=== PATIENT | female | born 1950 | race Caucasian/White ===

== ENCOUNTER 2023-03-02 22:06 | Emergency (ER) | payer OTHER ==
--- NOTE | 2023-03-02 23:06 | EDPHYS ---
Physician Documentation [facility] Name: Elaine Copeland Age: 72 yrs Sex: Female : 1950 Arrival Date: 03/02/2023 Time: 22:06 Bed 12 Private MD: ED Physician Gee Sol HPI: 03/02 22:50 This 72 yrs old Female presents to ER via Ambulatory with complaints of Eye Problem. cp 22:50 The patient is experiencing redness, to the left eye, caused by an unknown mechanism. cp Onset: The symptoms/episode began/occurred today. Associated signs and symptoms: Pertinent negatives: pain, drainage, injury. Patient reports she was reading a book to her grandchild when the child pointed out that her left eye was red. Patient with PMHX significant for HTN. Reports she has not taken evening medication. Denies pain, no change in vision. Historical: - Allergies: 22:16 No Known Allergies; kl - PMHx: 22:16 Hypertensive disorder; Asthma; seasonal allergies; kl - PSHx: 22:16 foot; esophageal dilation; kl - Immunization history:: Adult Immunizations up to date. - Social history:: Smoking status: Patient denies any tobacco usage or history of. ROS: 22:53 Eyes: Positive for redness, of the inner aspect of conjunctiva of left eye, Negative cp for discharge, itching, pain, visual disturbance. 22:53 ENT: Negative for drainage from ear(s), ear pain, sore throat, difficulty swallowing, cp difficulty handling secretions. 22:53 Cardiovascular: Negative for chest pain. 22:53 Respiratory: Negative for cough, shortness of breath, wheezing. 22:53 Abdomen/GI: Negative for abdominal pain, nausea, vomiting, and diarrhea. 22:53 Neuro: Negative for altered mental status, dizziness, headache, weakness. 22:53 All other systems are negative. Exam: 22:56 Head/Face: Normocephalic, atraumatic. cp 22:56 Constitutional: The patient appears in no acute distress, alert, awake, comfortable, non-toxic, well developed, well nourished. 22:56 Eyes: Periorbital structures: appear normal, Pupils: equal, round, and reactive to light and accomodation, Extraocular movements: intact throughout, Conjunctiva: subconjunctival hemorrhage(s), seen in the left eye, medial aspect, Corneas: are normal, Anterior chamber: normal, Lids and lashes: appear normal, bilaterally, Examination of the other eye reveals no obvious gross abnormality. 22:56 ENT: External ear(s): are unremarkable, Nose: is normal, Mouth: Lips: moist, Oral mucosa: moist, Posterior pharynx: is normal, airway is patent, no erythema, no exudate. 22:56 Neck: ROM/movement: is normal, is supple, without pain, no range of motions limitations. 22:56 Chest/axilla: Inspection: normal. 22:56 Cardiovascular: Rate: normal, Rhythm: regular. 22:56 Respiratory: the patient does not display signs of respiratory distress, Respirations: normal, no use of accessory muscles, labored breathing, is not present, Breath sounds: are clear throughout, no decreased breath sounds, no stridor, no wheezing. 22:56 Abdomen/GI: Inspection: abdomen appears normal. 22:56 Skin: no rash present. Vital Signs: 22:14 BP 183 / 93; Pulse 91; Resp 18; Temp 98.9; Pulse Ox 96% ; Weight 65.77 kg (R); Height 5 kl ft. 4 in. ; Pain 0/10; 22:14 Body Mass Index 24.89 (65.77 kg, 162.56 cm) kl 22:14 Pain Scale: Adult kl Visual Acuity: 22:48 Left Eye Visual acuity 20/20, ; Right Eye Visual acuity 20/20, ; Both Eyes Visual kd3 acuity 20/20; With Lenses; MDM: 22:28 Patient medically screened. cp 23:05 Data reviewed: vital signs, nurses notes. cp 23:05 Differential diagnosis: Foreign body in Acute iritis of subconjunctival hemorrhage. cp Care significantly affected by the following chronic conditions: Hypertension. Counseling: I had a detailed discussion with the patient and/or guardian regarding: the presence of at least one elevated blood pressure reading (>120/80) during this emergency department visit, the need for outpatient follow up, an opthalmologist, to return to the emergency department if symptoms worsen or persist or if there are any questions or concerns that arise at home. ED course: VS noted. Patient reports she will take prescribed blood pressure at home. Reassurance. Will discharge to home for continued monitoring. 03/02 22:43 Order name: Visual Acuity; Complete Time: 22:49 cp Administered Medications: No medications were administered Disposition Summary: 03/02/23 23:06 Discharge Ordered Location: Home cp Problem: new cp Symptoms: are unchanged cp Condition: Stable cp Diagnosis - Conjunctival hemorrhage, left eye cp - Hypertensive heart disease without heart failure cp Followup: cp - With: Private Physician - When: 2 - 3 days - Reason: Recheck today's complaints Discharge Instructions: - Discharge Summary Sheet cp - Hypertension, Adult cp - Subconjunctival Hemorrhage cp - Form - Blood Pressure Record Sheet cp - How to Take Your Blood Pressure cp Forms: - Medication Reconciliation Form cp - Thank You Letter cp - Antibiotic Education cp - Prescription Opioid Use cp - Patient Portal Instructions cp - Leadership Thank You Letter cp Signatures: Radha Poole RN RN kl Page, Corey, PA PA cp Corrections: (The following items were deleted from the chart) 03/03 15:23 15:20 Constitutional: The patient appears in no acute distress, alert, awake, cp comfortable, non-toxic, well developed, well nourished, cp 15:23 15:20 Head/Face: Normocephalic, atraumatic. cp cp 15:23 15:20 Eyes: Periorbital structures: appear normal, Pupils: equal, round, and reactive cp to light and accomodation, Extraocular movements: intact throughout, Conjunctiva: subconjunctival hemorrhage(s), seen in the left eye, medial aspect, Corneas: are normal, Anterior chamber: normal, Lids and lashes: appear normal, bilaterally, Examination of the other eye reveals no obvious gross abnormality, cp 15:23 15:20 ENT: External ear(s): are unremarkable, Nose: is normal, Mouth: Lips: moist, Oral cp mucosa: moist, Posterior pharynx: is normal, airway is patent, no erythema, no exudate, cp 15:23 15:20 Neck: ROM/movement: is normal, is supple, without pain, no range of motions cp limitations, cp 15:23 15:20 Chest/axilla: Inspection: normal, cp cp 15:23 15:20 Cardiovascular: Rate: normal, Rhythm: regular, cp cp 15:23 15:20 Respiratory: the patient does not display signs of respiratory distress, cp Respirations: normal, no use of accessory muscles, labored breathing, is not present, Breath sounds: are clear throughout, no decreased breath sounds, no stridor, no wheezing, cp 15:23 15:20 Abdomen/GI: Inspection: abdomen appears normal, cp cp 15:23 15:20 Skin: no rash present. cp cp
--- NOTE | 2023-03-02 23:06 | ER ---
Nurse's Notes [facility] Name: Elaine Copeland Age: 72 yrs Sex: Female : 1950 Arrival Date: 03/02/2023 Time: 22:06 Bed 12 Private MD: Diagnosis: Conjunctival hemorrhage, left eye;Hypertensive heart disease without heart failure Presentation: 03/02 22:14 Chief complaint: Patient states: left eye redness noticed 20 minutes INTERVENTIONIST denies change kl in vision or pain slight swelling noted to bottom lid no drainage. Coronavirus screen: Vaccine status: Patient reports receiving the 2nd dose of the covid vaccine. Ebola Screen: Patient negative for fever greater than or equal to 101.5 degrees Fahrenheit, and additional compatible Ebola Virus Disease symptoms. Initial Sepsis Screen: Does the patient meet any 2 criteria? No. Patient's initial sepsis screen is negative. Does the patient have a suspected source of infection? No. Patient's initial sepsis screen is negative. Risk Assessment: Do you want to hurt yourself or someone else? Patient reports no desire to harm self or others. 22:14 Method Of Arrival: Ambulatory kl 22:14 Acuity: ISELA 5 kl 22:45 Onset of symptoms was March 02, 2023. kd3 Triage Assessment: 22:17 General: Appears in no apparent distress. comfortable, Behavior is calm, cooperative. kl Pain: Denies pain. EENT: Eyes Sclera/Cornea are reddened in inner aspect of conjunctiva of left eye. Historical: - Allergies: 22:16 No Known Allergies; kl - PMHx: 22:16 Hypertensive disorder; Asthma; seasonal allergies; kl - PSHx: 22:16 foot; esophageal dilation; kl - Immunization history:: Adult Immunizations up to date. - Social history:: Smoking status: Patient denies any tobacco usage or history of. Screenin:44 [facility] ED Fall Risk Assessment (Adult) History of falling in the last 3 months, kd3 including since admission No falls in past 3 months (0 pts) Confusion or Disorientation No (0 pts) Intoxicated or Sedated No (0 pts) Impaired Gait No (0 pts) Mobility Assist Device Used No (0 pt) Altered Elimination No (0 pt) Score/Fall Risk Level 0 - 2 = Low Risk Maintained a safe environment. Abuse screen: Denies threats or abuse. Denies injuries from another. Nutritional screening: No deficits noted. Tuberculosis screening: No symptoms or risk factors identified. Assessment: 22:42 General: Appears uncomfortable, Behavior is calm, cooperative. Pain: Denies pain. EENT: kd3 Eyes hemorrhage noted to right eye . Vital Signs: 22:14 BP 183 / 93; Pulse 91; Resp 18; Temp 98.9; Pulse Ox 96% ; Weight 65.77 kg (R); Height 5 kl ft. 4 in. ; Pain 0/10; 22:14 Body Mass Index 24.89 (65.77 kg, 162.56 cm) kl 22:14 Pain Scale: Adult kl Visual Acuity: 22:48 Left Eye Visual acuity 20/20, ; Right Eye Visual acuity 20/20, ; Both Eyes Visual kd3 acuity 20/20; With Lenses; ED Course: 22:07 Patient arrived in ED. jj6 22:16 Triage completed. 22:23 Manuela Vila RN is Primary Nurse. kd3 22:28 Gee Rodriguez PA is PHCP. cp 22:28 Gee Sol MD is Attending Physician. cp 22:45 Arm band placed on right wrist. kd3 22:45 Patient has correct armband on for positive identification. Provided Education on: . kd3 23:15 No provider procedures requiring assistance completed. Patient did not have IV access kd3 during this emergency room visit. Administered Medications: No medications were administered Medication: 22:45 VIS not applicable for this client. kd3 Outcome: 23:06 Discharge ordered by . cp 23:15 Discharged to home ambulatory. kd3 23:15 Condition: stable 23:15 Discharge instructions given to patient, family, Instructed on discharge instructions, follow up and referral plans. Demonstrated understanding of instructions, follow-up care. 23:15 Patient left the ED. kd3 Signatures: Radha Poole RN RN kl Page, Corey, PA PA cp Jeffries, Jennifer 6 Manuela Vila RN RN kd3
[2023-03-02 23:39] VITALS: BP 183/93; TEMP 98.9; O2SAT 96
== END 2023-03-02 23:15 | disposition home or self-care (01) ==
LOC: ER 22:06
DX: H11.32 Conjunctival hemorrhage, left eye (principal); I11.9 Hypertensive heart disease without heart failure
CPT/HCPCS: 99283

== ENCOUNTER 2023-12-24 16:56 | Emergency (ER) | payer OTHER ==
--- OUTSIDE RECORDS SUMMARY | 2023-12-24 16:59 | XMS REPORT | Continuity of Care Document ---
Author Name Unknown Address [address] [place] [address] [facility] Address [address] [place] [address] Care Team Providers Care [place] Worker Name Role Phone Luis Gilmore Attending Clinician Unavailabl e [id number] Attending Clinician Unavaila ble FIDELINA TAY Admitting Clinician Unavailable [id number] Admitting Clinician Unavaila ble Payers Payer Name Policy Type Policy Number Effective Date Expirati on Date Source Encounters Start Date/Time End Date/Time Encounter Type Admission Type Attending Clinicians Care Facility Care Department Encounter ID Source 2023-06-08 11:00:00 Inpatient Luis Gamboa [facility] SUGL [id number] 18 [facility] 2023-05-23 00:00:00 2023-05-23 00:00:00 Outpatient [id number] [email or web address] PRIV PRIV [id number] [facility]
--- NOTE | 2023-12-24 19:24 | ER ---
Nurse's Notes [facility] Name: Elaine Copeland Age: 73 yrs Sex: Female : 1950 Arrival Date: 12/24/2023 Time: 16:56 Bed DX3 Private MD: Diagnosis: Unspecified superficial injury of other part of head, initial encounter Presentation: 12/23 17:50 Chief complaint: Patient states: FALL AT NOON WITH OCCIPITAL IMPACT, NO LOC. bp Coronavirus screen: At this time, the client does not indicate any symptoms associated with coronavirus-19. Ebola Screen: No symptoms or risks identified at this time. Initial Sepsis Screen: Does the patient meet any 2 criteria? No. Patient's initial sepsis screen is negative. Does the patient have a suspected source of infection? No. Patient's initial sepsis screen is negative. Risk Assessment: Do you want to hurt yourself or someone else? Patient reports no desire to harm self or others. Onset of symptoms was December 24, 2023 at 12:00. 17:50 Method Of Arrival: Ambulatory bp 17:50 Acuity: ISELA 4 bp Triage Assessment: 17:50 General: Appears in no apparent distress. comfortable, Behavior is cooperative, bp appropriate for age, anxious. Pain: Complains of pain in back of head. Neuro: Level of Consciousness is awake, alert, obeys commands, Oriented to Appropriate for age. Historical: - Allergies: 17:50 No Known Allergies; bp - PMHx: 17:50 Asthma; seasonal allergies; Hypertensive disorder; bp - PSHx: 17:50 Esophageal Dilation; foot; bp - Immunization history:: Adult Immunizations up to date. - Infectious Disease History:: Denies. - Social history:: Smoking status: Patient denies any tobacco usage or history of. Screenin:52 [facility] ED Fall Risk Assessment (Adult) History of falling in the last 3 months, bp including since admission No falls in past 3 months (0 pts). Abuse screen: Denies threats or abuse. Denies injuries from another. Nutritional screening: No deficits noted. Tuberculosis screening: No symptoms or risk factors identified. Assessment: 19:34 Reassessment: Patient appears in no apparent distress at this time. Patient and/or as6 family updated on plan of care and expected duration. Pain level reassessed. Patient is alert, oriented x 3, equal unlabored respirations, skin warm/dry/pink. Vital Signs: 17:50 BP 165 / 97; Pulse 89; Resp 16; Temp 98; Pulse Ox 97% ; bp 19:34 BP 155 / 74; Pulse 61; Resp 16; Pulse Ox 97% ; as6 ED Course: 17:00 Patient arrived in ED. im 17:01 Angelo Govea MD is Attending Physician. ec2 17:13 CT Head C Spine In Process Unspecified. EDMS 17:50 Arm band placed on. bp 17:51 Triage completed. bp 17:52 Patient has correct armband on for positive identification. bp 18:22 hSelby Grullon PA-C is PHCP. sb4 19:34 Provided Education on: follow up, fall precautions . as6 19:34 No provider procedures requiring assistance completed. Patient did not have IV access as6 during this emergency room visit. Administered Medications: No medications were administered Medication: 19:34 VIS not applicable for this client. as6 Outcome: 19:24 Discharge ordered by . sb4 19:34 Discharged to home ambulatory, with significant other, as6 19:34 Condition: stable 19:34 Discharge instructions given to patient, Instructed on discharge instructions, follow up and referral plans. Demonstrated understanding of instructions, follow-up care, 19:35 Patient left the ED. as6 Signatures: Dispatcher [employer] Troy Ga, RN RN Watson Payton RN RN as6 Shelby Grullon PA-C PA-C sb4 [place] Ron Angelo Govea MD MD ec2
--- NOTE | 2023-12-24 19:24 | EDPHYS ---
Physician Documentation [facility] Name: Elaine Copeland Age: 73 yrs Sex: Female : 1950 Arrival Date: 12/24/2023 Time: 16:56 Bed DX3 Private MD: ED Physician Angelo Govea HPI: 12/23 17:57 This 73 yrs old Female presents to ER via Ambulatory with complaints of Head ec2 Injury Without LOC-Adult. 17:57 Patient arrives today for evaluation after head injury. Patient reports that she ec2 tripped and fell and injured her head. Patient complaining of head pain and neck. Patient reports no LOC, no blood thinners.. Historical: - Allergies: 17:50 No Known Allergies; bp - PMHx: 17:50 Asthma; seasonal allergies; Hypertensive disorder; bp - PSHx: 17:50 Esophageal Dilation; foot; bp - Immunization history:: Adult Immunizations up to date. - Infectious Disease History:: Denies. - Social history:: Smoking status: Patient denies any tobacco usage or history of. ROS: 17:57 Constitutional: as per hpi ec2 Exam: 17:57 Constitutional: GEN: No acute distress HEENT: -Head: no deformities -Eyes: EOMI CV: ec2 regular rate LUNGS: no respiratory distress ABD: non-tender SKIN: no wounds appreciated MSK: No C/T/L spine deformities RUE w/o bony deformity LUE w/o bony deformity RLE w/o bony deformity LLE w/o bony deformity NEURO: moves all extremities equally, GCS 15 (E4, V5, M6), cranial nerves II through XII intact, strength intact all 4 extremities. Vital Signs: 17:50 BP 165 / 97; Pulse 89; Resp 16; Temp 98; Pulse Ox 97% ; bp 19:34 BP 155 / 74; Pulse 61; Resp 16; Pulse Ox 97% ; as6 MDM: 17:15 Patient medically screened. ec2 17:57 Data reviewed: vital signs. ED course: Patient arrives today for evaluation after head ec2 injury. Examination remarkable for well-appearing nontoxic dividual with reassuring vital signs and reassuring hemodynamics and neurologic examination. Will obtain CT scan of the head and C-spine to evaluate for traumatic pathology. Differential diagnosis includes processes such as intracranial brain bleed, C-spine fracture. Patient otherwise without any prodromal symptoms to indicate ACS or PE or dissection. Accordingly will also forego lab test such as CBC, BMP, EKG.. 18:22 Transition of care: After a detail discussion of the patient's case, care is ec2 transferred to Shelby Grullon PA-C. ED course: Patient signed out pending radiology read of CT scans.. 12/23 17:01 Order name: CT Head C Spine; Complete Time: 19:31 ec2 Administered Medications: No medications were administered Disposition: 12/24 10:00 I agree with the assessment and plan of care. I reviewed the patient's care provided by ec2 Advanced Practice Provider \T\ agree w/ the diagnosis \T\ care plan. I personally saw the pt \T\ performed a substantive portion of the visit, incldng all aspects of the (History/Exam/Medical Decision Making). Disposition Summary: 12/24/23 19:24 Discharge Ordered Notes: Location: Home sb4 Condition: Stable sb4 Diagnosis - Unspecified superficial injury of other part of head, initial encounter sb4 Followup: ec2 - With: Private Physician - When: - Reason: Re-evaluation by your physician Discharge Instructions: - Discharge Summary Sheet ec2 - Head Injury, Adult, [id number] ec2 Forms: - Patient Portal Instructions sb4 - Leadership Thank You Letter sb4 Signatures: Dispatcher [employer] Troy Ga, RN RN Shelby Strange PA-C PA-C sb4 Angelo Govea MD MD ec2 Corrections: (The following items were deleted from the chart) 12/23 17:01 17:01 Head C Spine MPR Wo Con+CT.RAD.BRZ ordered. JOSE GARCIA
--- NOTE | 2023-12-24 19:25 | RAD REPORT ---
EXAM DESCRIPTION: CT - [id number] - 12/24/2023 5:12 pm CLINICAL HISTORY: head injury COMPARISON: SOFT TISSUE NECK W CONTRAST dated 07/02/2012 TECHNIQUE: Axial thin cut noncontrast CT images of the head were obtained. Axial thin cut noncontrast CT images of the cervical spine were obtained. Multiplanar reformatted images were generated and reviewed. All CT scans are performed using dose optimization technique as appropriate and may include automated exposure control or mA/KV adjustment according to patient size. FINDINGS: CT HEAD WITHOUT CONTRAST: No acute hemorrhage, hydrocephalus or extra-axial collection is identified. Patchy periventricular an d deep white matter hypodensities, nonspecific, but suggestive of chronic small vessel ischemic white es. No areas of brain edema or midline shift. The paranasal sinuses and mastoids are clear.The calvarium is intact. CT CERVICAL SPINE WITHOUT CONTRAST: No fracture or subluxation. Mild multilevel degenerative changes, without high-grade canal or foramin al stenosis. [id number] left neural foraminal narrowing at C5-6. No prevertebral soft tissues s welling is identified. IMPRESSION: No acute traumatic intracranial or cervical spine findings. Chronic findings as above.
[2023-12-24 19:57] VITALS: BP 155/74; TEMP 98; O2SAT 97
== END 2023-12-24 19:35 | disposition home or self-care (01) ==
LOC: ER 16:56
DX: S00.80XA Unspecified superficial injury of other part of head, initial encounter (principal); M54.2 Cervicalgia
CPT/HCPCS: 70450; 72125; 99282